=== PATIENT | female | born 1970 | race Caucasian/White ===

== ENCOUNTER 2017-11-20 08:47 | Outpatient (CLI) | payer OTHER ==
--- NOTE | 2017-12-10 11:57 | MMO ---
BILATERAL DIGITAL SCREENING MAMMOGRAMS: HISTORY: A 47-year-old female presents for a digital screening mammography. COMPARISON: 09/30/2014 FINDINGS: This patient's mammogram is interpreted with the assistance of computer aided detection. The breasts are extremely dense bilaterally, which can lower the sensitivity of mammography and obscu re underlying malignancy. Numerous bilateral typically benign calcifications, somewhat more in numbe r but unchanged in character when compared to the prior study. IMPRESSION: BI-RADS Category 2: Benign findings. Continued routine screening. POS: [facility]
== END 2017-11-20 08:48 | disposition home or self-care (01) ==
LOC: SCSMAMMO 08:47
PROVIDERS: ATTEND Family Medicine
DX: Z12.31 Encounter for screening mammogram for malignant neoplasm of breast (principal)
CPT/HCPCS: 77067

== ENCOUNTER 2019-01-30 11:31 | Outpatient (CLI) | payer BC ==
--- NOTE | 2019-01-30 16:13 | MMO ---
Bilateral MAMMO Bilat Screen [facility]. CLINICAL HISTORY: Patient is 48 years old and is seen for screening. The patient has no family history of breast cancer. The patient has no personal history of cancer. VIEWS: The views performed were: bilateral craniocaudal and bilateral mediolateral oblique. FILMS COMPARED: The present examination has been compared to prior imaging studies performed at [facility] on 11/20/2017, and at [facility] on 09/30/2014 and 10/13/2014. This study has been interpreted with the assistance of computer-aided detection. MAMMOGRAM FINDINGS: The breasts are extremely dense, which may lower the sensitivity of mammography. Benign calcifications are noted bilaterally. There are no suspicious masses, suspicious calcifications, or new areas of architectural distortion. IMPRESSION: THERE IS NO MAMMOGRAPHIC EVIDENCE OF MALIGNANCY. A ROUTINE FOLLOW-UP MAMMOGRAM IN 1 YEAR IS RECOMMENDED. ACR BI-RADS Category 2 - Benign finding MAMMOGRAPHY NOTE: 1. A negative mammogram report should not delay a biopsy if a dominant of clinically suspicious mass is present. 2. Approximately 10% to 15% of breast cancers are not detected by mammography. 3. Adenosis and dense breasts may obscure an underlying neoplasm.
== END 2019-01-30 11:32 | disposition home or self-care (01) ==
LOC: SCSMAMMO 11:31
PROVIDERS: ATTEND Family Medicine
DX: Z12.31 Encounter for screening mammogram for malignant neoplasm of breast (principal)
CPT/HCPCS: 77067

== ENCOUNTER 2024-05-05 09:45 | Outpatient (CLI) | payer BC | END 2024-05-05 09:46 | disposition home or self-care (01) | LOC: BICMAMMO 09:45 | PROVIDERS: ATTEND Family Medicine | DX: N64.59 Other signs and symptoms in breast (principal) | CPT/HCPCS: 77066; G0279 ==